=== PATIENT | male | born 1975 | race Caucasian/White ===

== ENCOUNTER 2023-08-12 12:07 | Outpatient (CLI) | payer OTHER, SELFPAY ==
--- NOTE | 2023-08-12 12:19 | ECG_ITS ---
SEE SCANNED COPY FOR CONFIRMED REPORT MTDD
== END 2023-08-12 12:08 | disposition home or self-care (01) ==
PROVIDERS: PCP Internal Medicine; Visit Provider Internal Medicine
DX: R00.1 Bradycardia, unspecified (principal); I49.8 Other specified cardiac arrhythmias
CPT/HCPCS: 93005